=== PATIENT | female | born 2000 ===

== ENCOUNTER 2023-01-11 19:58 | Emergency (ER) | payer MEDICAID, SELFPAY ==
--- NOTE | 2023-01-12 22:36 | W.ED.GENAD ---
Discharge Plan Discharge Details Primary Care Provider: Anabel,Local ED Provider: Chantell Jc Home Meds and New Rx's Prescriptions: No Action No Known Home Meds Discharge Data Discharge Date/Time-TO BE ENTERED AT DEPARTURE: 01/12/23 01:09 Medical Decision Making Downtime procedures see paper chart. HPI Related Data Home Medications Medication Instructions Recorded Confirmed Unknown [No Known Home Meds] 01/12/23 Allergies Allergy/AdvReac Type Severity Reaction Status Date / Time shellfish Allergy Uncoded 01/12/23 10:45 [facility] Social History Smoking risk assessment performed?: No
== END 2023-01-12 01:09 ==
PROVIDERS: Emergency Provider Registered Nurse Emergency
DX: R11.0 Nausea (principal); R42 Dizziness and giddiness; S00.03XA Contusion of scalp, initial encounter; W08.XXXA Fall from other furniture, initial encounter; S06.0X0A Concussion without loss of consciousness, initial encounter
CPT/HCPCS: 99281; 99282

== ENCOUNTER 2023-07-21 21:14 | Outpatient (REF) | payer MEDICAID, SELFPAY ==
[2023-07-21 21:12] LABS: Bilirubin Negative (Negative); Blood Negative (Negative); Clarity Clear (Clear); Glucose Negative (Negative); Ketones Negative (Negative); Leukocyte Esterase Small (Negative); Nitrite Negative (Negative); Urobilinogen 0.2 mg/dL (Up to 0.2)
[2023-07-21 21:17] LABS: RBC Negative HPF (0-2)
[2023-07-21 21:19] LABS: Bacteria Rare HPF (Negative); C & S Indicated? Yes; Casts Negative LPF (Negative); Crystals Negative HPF (Negative); Epithelial Cells Rare HPF (Negative); Mucus Negative (Negative)
== END 2023-07-21 21:15 | disposition home or self-care (01) ==
LOC: LBN 21:14
PROVIDERS: Visit Provider Nurse Practitioner Family
DX: N76.0 Acute vaginitis (principal); B37.32 Chronic candidiasis of vulva and vagina; N39.0 Urinary tract infection, site not specified
CPT/HCPCS: 81003; 81015; 87086; 87480; 87510; 87660